=== PATIENT | female | born 1940 | race Caucasian/White ===

== ENCOUNTER 2016-09-03 08:02 | Outpatient (CLI) | payer MEDICARE, OTHER ==
[2016-09-03 08:42] LABS: HEMOGLOBIN A1C 0.47 g/dL
== END 2016-09-03 08:03 | disposition home or self-care (01) ==
LOC: LAB 08:02
PROVIDERS: ATTEND Internal Medicine Endocrinology, Diabetes & Metabolism
DX: R73.03 Prediabetes (principal); E03.8 Other specified hypothyroidism; M85.80 Other specified disorders of bone density and structure, unspecified site
CPT/HCPCS: 36415; 82306; 82310; 83036; 84443

== ENCOUNTER 2017-07-22 09:52 | Outpatient (CLI) | payer MEDICARE, OTHER ==
--- NOTE | 2017-07-22 12:46 | XRAY Report ---
THREE VIEW RIGHT FOOT: 07/22/2017 CLINICAL INDICATION: Pain. FINDINGS: AP, lateral, oblique views of the right foot demonstrate degenerative changes. There is no evidence of acute fracture or dislocation. No radiopaque foreign body is seen in the soft tissues. IMPRESSION: DEGENERATIVE CHANGES. TD: 07/22/2017 12:32
== END 2017-07-22 09:53 | disposition home or self-care (01) ==
LOC: DI 09:52
PROVIDERS: ATTEND Podiatrist
DX: M79.671 Pain in right foot (principal); R60.0 Localized edema

== ENCOUNTER 2017-11-27 15:27 | Outpatient (CLI) | payer MEDICARE, OTHER ==
--- NOTE | 2017-11-30 09:28 | Mammography Report ---
Reason: SCREENING MAMMO Procedure Date: 11/27/2017 Accession Number: [id number] / [id number] Procedure: SHANKAR - Screening Mammo Dig Bilat CPT Code: FULL RESULT: EXAM: Screening Mammo Dig Bilat DATE: 11/27/2017 3:54 PM CLINICAL HISTORY: 77-year-old female presents for screening mammogram. TECHNIQUE: Bilateral CC and MLO views were obtained. COMPARISON: 12/16/2012, 08/21/2010, 08/14/2009. FINDINGS: The breasts demonstrate scattered fibroglandular densities bilaterally. Typically benign coarse calcifications are seen in the right breast. Coarse calcifications in the left breast are stable dating back to 2012, likely more conspicuous breast density loss. No suspicious masses, clustered microcalcifications, or regions of architectural distortion are identified. IMPRESSION: Benign findings RECOMMENDATION: Routine annual screening unless otherwise clinically indicated. BIRADS CATEGORY 2: Benign findings STANDARD QUALIFYING STATEMENTS: 1. This examination was not reviewed with the aid of Computer-Aided Detection (CAD). 2. A negative or benign imaging report should not delay biopsy if clinically suspicious findings are present. Consider surgical consultation if warrented. More than 5% of cancers are not identified by imaging. 3. Dense breasts may obscure an underlying neoplasm. 4. This examination was reviewed without the aid of 3D breast imaging (tomosynthesis).
== END 2017-11-27 15:28 | disposition home or self-care (01) ==
LOC: DI 15:27
PROVIDERS: ATTEND Family Medicine
DX: Z12.31 Encounter for screening mammogram for malignant neoplasm of breast (principal)
CPT/HCPCS: 77067

== ENCOUNTER 2018-03-12 09:19 | Outpatient (CLI) | payer MEDICARE, OTHER ==
[2018-03-12 10:10] LABS: HB2 TOTAL 13.4 g/dL; HEMOGLOBIN A1C 0.51 g/dL; HEMOGLOBIN A1C % 5.6 % (4.6-6.2)
[2018-03-12 10:41] LABS: THYROID STIMULATING HORMONE 4.03 uIU/mL (0.34-5.60)
[2018-03-12 10:43] LABS: FREE T4 (FREE THYROXINE) 1.06 ng/dL (0.58-1.64)
== END 2018-03-12 09:20 | disposition home or self-care (01) ==
LOC: LAB 09:19
PROVIDERS: ATTEND Internal Medicine Endocrinology, Diabetes & Metabolism
DX: R73.03 Prediabetes (principal); E03.9 Hypothyroidism, unspecified
CPT/HCPCS: 36415; 82310; 83036; 84439; 84443; 84481

== ENCOUNTER 2019-03-15 10:18 | Outpatient (CLI) | payer MEDICARE, OTHER ==
[2019-03-15 10:49] LABS: HB2 TOTAL 12.5 g/dL; HEMOGLOBIN A1C 0.47 g/dL; HEMOGLOBIN A1C % 5.6 % (4.6-6.2)
[2019-03-15 11:39] LABS: THYROID STIMULATING HORMONE 1.95 uIU/mL (0.34-5.60)
[2019-03-15 11:41] LABS: FREE T4 (FREE THYROXINE) 1.15 ng/dL (0.58-1.64)
== END 2019-03-15 10:19 | disposition home or self-care (01) ==
LOC: LAB 10:18
PROVIDERS: ATTEND Internal Medicine Endocrinology, Diabetes & Metabolism
DX: M85.80 Other specified disorders of bone density and structure, unspecified site (principal); R73.03 Prediabetes; E03.8 Other specified hypothyroidism
CPT/HCPCS: 36415; 82310; 83036; 84439; 84443; 84481

== ENCOUNTER 2019-05-24 08:25 | Outpatient (CLI) | payer MEDICARE, OTHER ==
--- NOTE | 2019-05-24 10:58 | MRI Report ---
Reason: LEG WEAKNESS, INCONTINENCE Procedure Date: 05/24/2019 Accession Number: [id number] / [id number] Procedure: MRI - Lumbar Spine W/O CPT Code: Final Report FULL RESULT: EXAM: MRI LUMBAR SPINE WITHOUT CONTRAST INDICATION: 79-year-old female. Right leg weakness. Incontinence. TECHNIQUE: 1. Sagittal STIR, T1 and T2. 2. Axial T1 and T2. COMPARISON: 09/22/2015. FINDINGS: To maintain continuity with the report for the previous examination of 09/22/2015, this study has also been interpreted with the transitional vertebra at the lumbosacral junction being labeled L5. The L5 vertebra is partially sacralized on the right. Again demonstrated is a mild, dextroconvex scoliosis with apex at the L1-L2 disk level and compensatory, mild levoconvex scoliosis with apex at the L3-L4 disk level. In the sagittal plane there is minor retrolisthesis of L1 on L2, stable. There has been interval development of a grade 1 anterior subluxation of L3 on L4, measuring about 4.5 mm. There is no evidence of L3 spondylolysis. The anterior subluxation appears to be secondary to degenerative facet arthrosis. The vertebral alignment is otherwise unremarkable. There is absence of normal T2 signal from the disks at all levels, confirming disk degeneration. There is moderate to severe disk space narrowing at T10-T11, most pronounced, laterally on the right. Mild disk space narrowing is again seen at L1-L2 with mild to moderate narrowing at L2-L3, mild narrowing at L3-L4 and moderate to severe narrowing at L4-L5, essentially unchanged. A large intraosseous hemangioma is again seen in the T11 vertebral body. There is a type I reactive marrow change in the vertebral endplates at T10-T11, L3-L4 and L4-L5. The marrow signal intensity is otherwise unremarkable. The conus terminates in an appropriate fashion at about the T12-L1 disk level. Axial images: T9-T10: No disk herniation. Degenerative facet arthrosis with mild bony hypertrophy. Minimal mass effect on the dural sac. No spinal stenosis. No significant-appearing foraminal narrowing. T10-T11: Tiny, shallow protrusion paracentrally to the right. Larger extrusion paracentrally to the left. Associated mass effect on the ventral aspect of the dural sac. Posterior element hypertrophy with associated mass effect on the dorsal aspect of the dural sac, most prominent on the right. No significant associated spinal stenosis. There is at least mild bony foraminal narrowing bilaterally. T11-T12: No disk herniation. Degenerative facet arthrosis with minimal bony hypertrophy. No spinal canal or foraminal stenosis. T12-L1: No disk herniation. No spinal canal or foraminal stenosis. L1-L2: Retrolisthesis with associated uncovering of the disk. No posterior protrusion or extrusion is demonstrated. There is a tiny left infra-/extraforaminal protrusion. Degenerative facet arthrosis without significant bony hypertrophy. Mild redundancy of the ligamentum flava. No spinal stenosis. Minimal foraminal narrowing. L2-L3: Small right intraforaminal protrusion. Small left intraforaminal extrusion. Degenerative facet arthrosis with minimal bony hypertrophy. Mild to moderate redundancy of the ligamenta flava. Mild mass effect on the dorsal aspect of the dural sac. No significant spinal stenosis. Mild foraminal narrowing. L3-L4: Anterolisthesis with associated uncovering of the disk. No posterior protrusion or extrusion is demonstrated. There are small intra-/extraforaminal extrusions bilaterally. Degenerative facet arthrosis with moderate bony hypertrophy. Moderate to marked redundancy of the ligamenta flava. Circumferential thecal sac compression with moderate generalized (central and subarticular zone) spinal stenosis. The degree of subarticular zone narrowing appears to have decreased since the previous study. There is mild foraminal narrowing bilaterally. L4-L5: Minor intraforaminal protrusions or extrusions bilaterally, unchanged. Degenerative facet arthrosis with mild bony hypertrophy. Mild to moderate redundancy of the ligamenta flava. No significant spinal stenosis. Minimal left and mild to moderate right foraminal stenoses. Intraforaminal disk appears to contact the undersurface of the exiting right L4 nerve root in the lateral aspect of the neural foramen, unchanged. The perineural fat is otherwise preserved. L5-S1: No disk herniation. No spinal canal or foraminal stenosis. There is a moderate degree of fatty atrophy in the posterior paraspinal musculature. Again demonstrated are 2 cortical cysts in the right kidney, the largest measuring about 13 mm diameter, increased from about 4.5 mm diameter on the previous study. There is a multilobulated, T2 hyperintense mass, posteriorly in the right lobe of the liver (see images 50 through 46 of series 601) measuring up to about 2.8 cm and a 3.4 cm maximal transverse. IMPRESSION: 1. To maintain continuity with the report for the previous study of 09/22/2015, this examination has also been interpreted with the transitional vertebra at the lumbosacral junction being labeled L5. 2. There has been interval development of mild (grade 1) degenerative anterolisthesis of L3 on L4. 3. Essentially stable pattern of multilevel degenerative disk and facet change. 4. There is moderate generalized (central and subarticular zone) spinal stenosis at L3-L4. The degree of subarticular zone narrowing actually appears reduced when compared to the study of 09/22/2015. There is no compromise of the traversing L4 nerve roots in the subarticular zones. 5 No other spinal stenosis is demonstrated. 6. Again demonstrated is multilevel foraminal narrowing. However, no high-grade foraminal stenosis is demonstrated and there is no evidence of lumbar nerve root impingement.
== END 2019-05-24 08:26 | disposition home or self-care (01) ==
LOC: DI 08:25
PROVIDERS: ATTEND Psychiatry & Neurology Neurology
DX: M51.36 Other intervertebral disc degeneration, lumbar region (principal); M48.061 Spinal stenosis, lumbar region without neurogenic claudication; M47.816 Spondylosis without myelopathy or radiculopathy, lumbar region; M47.814 Spondylosis without myelopathy or radiculopathy, thoracic region; M51.26 Other intervertebral disc displacement, lumbar region; M43.16 Spondylolisthesis, lumbar region
CPT/HCPCS: 72148

== ENCOUNTER 2020-05-31 08:33 | Outpatient (CLI) | payer MEDICARE, OTHER ==
--- NOTE | 2020-05-31 09:56 | DEXA Report ---
PROCEDURE: Dexa Spine and/or Hip INDICATIONS: POST MENOPAUSAL TECHNIQUE: Dual energy x-ray absorptiometry (DXA) was performed on a [employer] System. Regions measur ed are the AP Spine, femoral neck, and if needed forearm. COMPARISON: None. FINDINGS: Lumbar Spine L1 and L2 levels (surgical hardware is seen at L4 level): Bone Mineral Density 0.894 g/cm/cm,T score -2.3, Left Hip: Bone Mineral Density 0.753 g/cm/cm,T score -2.0, Left Femoral Neck: Bone Mineral Density 0.748 g/cm/cm, T score -2.1, (T score greater or equal to -1.0: NORMAL) (T score from -1.1 to -2.4: OSTEOPENIA) (T score less than or equal to -2.5 to: OSTEOPOROSIS) Impression: Osteopenia. Patients with diagnosis of osteoporosis or osteopenia should have regular bone mineral density assess ment. For those eligible for Medicare, routine testing is allowed once every 2 years. Testing frequ ency can be increased for patients who have rapidly progressing disease or for those who are receivin g medical therapy to restore bone mass. Reviewed by: Kb Funes MD on 05/31/2020 9:54 AM PDT Approved by: Kb Funes MD on 05/31/2020 9:54 AM PDT Station ID: [id number]
== END 2020-05-31 08:34 | disposition home or self-care (01) ==
LOC: DI 08:33
PROVIDERS: ATTEND Internal Medicine
DX: Z13.820 Encounter for screening for osteoporosis (principal); N95.8 Other specified menopausal and perimenopausal disorders; M85.89 Other specified disorders of bone density and structure, multiple sites

== ENCOUNTER 2021-02-18 14:50 | Outpatient (CLI) | payer MEDICARE, OTHER ==
[2021-02-18 16:00] LABS: FOLATE 8.02 ng/mL (5.90 - >24.8)
== END 2021-02-18 14:51 | disposition home or self-care (01) ==
LOC: LAB 14:50
PROVIDERS: ATTEND Psychiatry & Neurology Neurology
DX: G11.9 Hereditary ataxia, unspecified (principal); H53.2 Diplopia
CPT/HCPCS: 36415; 82607; 82746; 84425

== ENCOUNTER 2021-09-27 08:46 | Outpatient (CLI) | payer MEDICARE, OTHER | END 2021-09-27 08:47 | disposition home or self-care (01) | LOC: LAB 08:46 | PROVIDERS: ATTEND Orthopaedic Surgery | DX: Z01.812 Encounter for preprocedural laboratory examination (principal); Z20.822 Contact with and (suspected) exposure to COVID-19 ==

== ENCOUNTER 2021-12-20 12:51 | Emergency (ER) | payer MEDICARE, OTHER ==
--- NOTE | 2021-12-20 14:58 | CT Report ---
PROCEDURE: LUMBAR SPINE WO INDICATIONS: low back pain s/p fall, ortho req CT TECHNIQUE: Noncontrast 3 mm thick sections acquired from the T12 level to the sacrum. Sagittal and coronal refo rmats were constructed. For radiation dose reduction, the following was used: automated exposure co ntrol, adjustment of mA and/or kV according to patient size. COMPARISON: Prior lumbosacral spine MRI 05/24/2019 (preoperative).. FINDINGS: Image quality: Excellent. Bones: There is normal bony alignment. There is, however, and acute L2 vertebral body compression fr acture. No suspicious lytic or blastic bony lesions. Central spinal caliber is of mildly reduced ov erall caliber at the level of the compression fracture involving L2. No pars defects. The lumbosacral spine has been fused by transverse pedicle screws and a vertical fixation marija that wi th interbody L4-L5 cage disc prosthesis at the level of fusion. This appears free of disruption. The acute trauma involving L2 predominantly involving the upper third of the vertebral body where cir cumferential fractures and mild retropulsion of the upper posterior L2 vertebral body into the spinal canal by approximately 3-4 mm is present. Fracture planes extend into the posterior third of the lorene tebral body and base of the right and left pedicles as a result. Slight degenerative retrolisthesis of L2 on L3 is present. There is an estimated 25% vertebral body h eight reduction at the middle third of the vertebral body in AP orientation. Soft tissues: No retroperitoneal masses or hematomas. Visualized aorta is normal in caliber. IMPRESSION: 1. Acute L2 superior vertebral body compression fracture which extends into the posterior third of th e vertebral body and is associated with mild retropulsion of the upper posterior L2 vertebral body abiola rder into the spinal canal by approximately 3-4 mm. This is considered a potentially unstable "burst fracture". Approximately a 25% vertebral height reduction is associated with this injury when compare d to the normal height vertebral bodies above and below. 2. Previously performed L4-L5 fusion procedure shows no sign of disruption. Reviewed by: Rajesh Bañuelos MD on 12/20/2021 2:56 PM PDT Approved by: Rajesh Bañuelos MD on 12/20/2021 2:56 PM PDT Station ID: [id number]
[2021-12-20] MEDS ORDERED: KETOROLAC 30 MG/ML VIAL IM STA (16:09)
[2021-12-20] MEDS ORDERED: DEXAMETHASONE 10 MG/ML VIAL IM STA (16:09)
--- NOTE | 2021-12-20 16:54 | ED Physician Documentation ---
History of Present Illness - Stated complaint Stated Complaint: FALL - Chief complaint Chief Complaint: Back Pain - History obtained from History obtained from: Patient - Additonal information Additional information: The patient comes to the emergency department for chief complaint of right lateral sacral area pain after a fall 5 days ago. The patient states she sat down hard in her bathroom on a ceramic tile floor. She was not hurt in any other way. She was seen at [facility], where she is already established as a patient and has had both a hip replacement and a low back surgery with Dr. Funes. X-rays were done at that time and negative. The patient was placed on symptomatic treatment and sent home, with the recommendation that if she noticed worsening pain, to come to the ED for a CT scan. The patient states she really does not like to take pain medication and has been taking 1 oxycodone a day at around 10:00 in the morning. She states that as the day wears on, she notices increasing pain in her right lateral sacral area, but then takes ibuprofen and Tylenol before going to bed and sleeps very well. Patient denies any numbness or tingling in her lower extremities. No weakness. No difficulty controlling bowels or bladder. She has had no trouble ambulating other than that it hurts a bit. No back pain higher up. No other complaints at this time. Review of Systems Ten Systems: 10 systems reviewed and negative Constitutional: reports: Reviewed and negative Eyes: reports: Reviewed and negative Ears: reports: Reviewed and negative Nose: reports: Reviewed and negative Throat: reports: Reviewed and negative Cardiac: reports: Reviewed and negative Respiratory: reports: Reviewed and negative GI: reports: Reviewed and negative : reports: Reviewed and negative Skin: reports: Reviewed and negative Musculoskeletal: reports: Back pain Neurologic: reports: Reviewed and negative Psychiatric: reports: Reviewed and negative Endocrine: reports: Reviewed and negative Immunocompromised: reports: Reviewed and negative PD PAST MEDICAL HISTORY - Past Medical History Cardiovascular: Arrhythmia Endocrine/Autoimmune: HyPOthyroidism HEENT: Glaucoma - Past Surgical History HEENT: Cataracts - Present Medications Home Medications: Ambulatory Orders Medication Instructions Recorded Confirmed Ascorbic Acid/Cod Liver Oil [Cod 1 tab ORAL DAILY 05/04/14 05/04/14 Liver Oil Tab Chewable] Ca/D3/Mag Ox/Zinc/Cable Weaver/Rob/Bor 1 tab ORAL DAILY 05/04/14 05/04/14 [Calcium 600-Vit D3-Min Chew Tb] Levothyroxine [Synthroid] 1 tab ORAL DAILY 05/04/14 05/04/14 Liothyronine Sodium [Cytomel] 1 tab ORAL DAILY 05/04/14 05/04/14 Triamterene/Hydrochlorothiazid 1 tab ORAL DAILY 05/04/14 05/04/14 [Maxzide 37.5 mg-25 mg Tablet] Cholecalciferol (Vitamin D3) 4,000 unit PO 04/26/18 [Vitamin D] Ibuprofen 800 mg PO Q8HR PRN 04/26/18 04/26/18 Latanoprost/Pf [Latanoprost 0.005% 7.5 ml OP 04/26/18 Eye Drop] Metoprolol Succinate 12.5 mg PO DAILY 04/26/18 04/26/18 Timolol 0.25% Ophth Drops 1 drops OPTH BID 04/26/18 04/26/18 [Timoptic 0.25% Ophth Drops] Oxycodone HCl/Acetaminophen 1 - 2 each PO Q6H PRN #20 tablet 12/20/21 [Percocet 5-325 mg Tablet] - Allergies Allergies/Adverse Reactions: Allergies Allergy/AdvReac Type Severity Reaction Status Date / Time No Known Drug Allergies Allergy Verified 12/20/21 13:24 - Social History Does the pt smoke?: No Smoking Status: Never smoker Does the pt drink ETOH?: No Does the pt have substance abuse?: No - Immunizations Immunizations are current?: Yes PD ED PE NORMAL - Vitals Vital signs reviewed: Yes - General General: Alert and oriented X 3, No acute distress, Well developed/nourished - HEENT HEENT: Atraumatic, PERRL, EOMI, Moist mucous membranes - Neck Neck: Supple, no meningeal sign - Cardiac Cardiac: Strong equal pulses - Respiratory Respiratory: No respiratory distress - Abdomen Abdomen: Soft, Non tender, Non distended - Back Back: No spinal TTP - Derm Derm: Normal color, Warm and dry, No rash - Extremities Extremities: No deformity, Other (Tenderness palpation over right sacroiliac area. No deformity or step-off. No right hip tenderness.) - Neuro Neuro: Alert and oriented X 3 - Psych Psych: Normal mood, Normal affect Results - Vitals Vitals: Oxygen O2 Source Room air - Rads (name of study) CT lumbar spine Radiology: Final report received, See rad report (Acute L2 superior vertebral body compression fracture extending into posterior third of vertebral body associated with mild retropulsion into spinal canal by 3 to 4 mm considered potentially unstable burst fracture.) PD MEDICAL DECISION MAKING - ED course Complexity details: reviewed results, re-evaluated patient, considered differential, d/w patient, d/w family ED course: The patient was sent for CT of her spine which showed an L2 compression fracture which the radiologist noted as being a potentially unstable burst fracture. The patient did not have any neurologic symptoms and was not actually tender in that area. The area of tenderness did not show any abnormalities on CT scan. I did send images to [facility] and attempted to get a hold of the patient's spine surgeon or his partner, as it was only 1530 in the afternoon; however, his office stated they would not page him because their surgeons had already left for the day. Therefore, images were pushed to [facility], and I was able to speak with their deck specialist, Dr. Vasquez, who stated that the fracture could be managed conservatively, and he did not feel it posed a danger to the pt neurologically. Furthermore, he stated the pt could follow up with her PCP and did not need to be seen in spine clinic. I relayed this to the pt and her daughter, who were comfortable with this plan. We have discussed the usual indications for return. Departure - Departure Disposition: 01 Home, Self Care Clinical Impression: Back pain Qualifiers: Back pain location: low back pain Chronicity: acute Back pain laterality: right Sciatica presence: without sciatica Qualified Code(s): M54.50 - Low back pain, unspecified Burst fracture of lumbar vertebra Qualifiers: Encounter type: initial encounter Fracture type: closed Qualified Code(s): S32.001A - Stable burst fracture of unspecified lumbar vertebra, initial encounter for closed fracture Condition: Stable Instructions: ED Fx Comp Vertebral Prescriptions: Oxycodone HCl/Acetaminophen [Percocet 5-325 mg Tablet] 1 - 2 each PO Q6H PRN #20 tablet PRN Reason: pain Comments: You have been diagnosed with an L2 compression fracture that has been called by the radiologist as a possible unstable burst fracture. Because of this, we have been in the process of trying to get a hold of the deck specialist to view your images and make recommendations as to the most appropriate line of care. We have attempted to get a hold of your deck specialist or his partner at [facility], but unfortunately, they are unavailable to discuss the case and so instead, we have reached out to [facility]. I spoke with Dr. Vasquez, the spinal specialist at [facility] and he is reviewed your images. He does not feel that there is a high likelihood of shifting of your fracture, and has recommended that you take the pain medications as much as needed and follow-up in 10 to 14 days with your deck specialist. If you are having trouble getting into see your own specialist, then you may follow-up at the spinal clinic at [facility]. You may take more oxycodone than you are currently taking, or you may take smaller doses more frequently to help with your pain. Discharge Date/Time: 12/20/21 17:49
[2021-12-20 17:32] VITALS: BP 156/73
== END 2021-12-20 17:49 | disposition home or self-care (01) ==
LOC: ED 12:51
DX: S32.001A Stable burst fracture of unspecified lumbar vertebra, initial encounter for closed fracture (principal); M54.50 Low back pain, unspecified; W18.39XA Other fall on same level, initial encounter; Y92.002 Bathroom of unspecified non-institutional (private) residence as the place of occurrence of the external cause
CPT/HCPCS: 96372; 99284

== ENCOUNTER 2021-12-21 12:27 | Outpatient (CLI) | payer MEDICARE, OTHER | END 2021-12-21 12:28 | disposition EMS.NT | LOC: EMS 12:27 | DX: Z03.89 Encounter for observation for other suspected diseases and conditions ruled out (principal) ==

== ENCOUNTER 2022-01-01 06:00 | Outpatient (CLI) | payer MEDICARE, OTHER | END 2022-01-01 06:01 | disposition EMS.NT | LOC: EMS 06:00 | DX: R53.1 Weakness (principal) ==

== ENCOUNTER 2022-03-09 11:17 | Outpatient (CLI) | payer MEDICARE, OTHER | END 2022-03-09 11:18 | disposition critical access hospital (66) | LOC: EMS 11:17 | DX: R53.1 Weakness (principal); R11.10 Vomiting, unspecified; R68.83 Chills (without fever); R26.2 Difficulty in walking, not elsewhere classified; R53.81 Other malaise | CPT/HCPCS: A0425; A0429 ==

== ENCOUNTER 2022-03-09 11:34 | Emergency (ER) | payer MEDICARE, OTHER ==
[2022-03-09] MEDS ORDERED: ONDANSETRON 4 MG/2 ML VIAL IVP STA (11:44)
[2022-03-09] MEDS ORDERED: SODIUM CHLORIDE 0.9% 1,000 ML IV STA (11:44)
--- NOTE | 2022-03-09 11:51 | ED Physician Documentation ---
History of Present Illness - Stated complaint Stated Complaint: FLU LIKE SX - Additonal information Additional information: History is obtained in part by EMS as well as the patient. Patient is a reliable historian. Patient's daughter also provides ancillary data 82-year-old female is brought to the emergency department for evaluation of shaking, vomiting and increased weakness. Reportedly the patient was this morning in the restroom getting ready to use the toilet when she missed the grab bars and sat back forcefully. She did not lose consciousness but immediately began to shake and have some vomiting. She had no fevers or diarrhea. No urinary symptoms. She could not ambulate independently at home and EMS was summoned. Reportedly the patient moved to a jail facility last week. It is [facility]. She and her daughter as well as some grandchildren were at her house arranging further home goods. At baseline the patient is independent of ADLs and ambulation. Past medical history includes hypertension, atrial fibrillation as well as t hyroid disease. On presentation to the emergency department the patient is alert very well- appearing and nonfocal. However when she attempted to get out of the gurney to use the restroom she was very weak and needed assistance sitting up. Meds: Eliquis, hydrochlorothiazide, levothyroxine, metoprolol Review of Systems Constitutional: reports: Reviewed and negative Nose: reports: Reviewed and negative Throat: reports: Reviewed and negative Cardiac: reports: Reviewed and negative Respiratory: reports: Reviewed and negative GI: reports: Vomiting : reports: Reviewed and negative Skin: reports: Reviewed and negative Musculoskeletal: reports: Reviewed and negative Neurologic: reports: Generalized weakness. denies: Focal weakness, Difficulty speaking, Seizure, Confused, Altered mental status, Headache PD PAST MEDICAL HISTORY - Past Medical History Cardiovascular: Arrhythmia Endocrine/Autoimmune: HyPOthyroidism HEENT: Glaucoma - Past Surgical History HEENT: Cataracts - Present Medications Home Medications: Ambulatory Orders Medication Instructions Recorded Confirmed Ascorbic Acid/Cod Liver Oil [Cod 1 tab ORAL DAILY 05/04/14 05/04/14 Liver Oil Tab Chewable] Ca/D3/Mag Ox/Zinc/Collision Estimator/Rob/Bor 1 tab ORAL DAILY 05/04/14 05/04/14 [Calcium 600-Vit D3-Min Chew Tb] Levothyroxine [Synthroid] 1 tab ORAL DAILY 05/04/14 05/04/14 Liothyronine Sodium [Cytomel] 1 tab ORAL DAILY 05/04/14 05/04/14 Triamterene/Hydrochlorothiazid 1 tab ORAL DAILY 05/04/14 05/04/14 [Maxzide 37.5 mg-25 mg Tablet] Cholecalciferol (Vitamin D3) 4,000 unit PO 04/26/18 [Vitamin D] Ibuprofen 800 mg PO Q8HR PRN 04/26/18 04/26/18 Latanoprost/Pf [Latanoprost 0.005% 7.5 ml OP 04/26/18 Eye Drop] Metoprolol Succinate 12.5 mg PO DAILY 04/26/18 04/26/18 Timolol 0.25% Ophth Drops 1 drops OPTH BID 04/26/18 04/26/18 [Timoptic 0.25% Ophth Drops] Oxycodone HCl/Acetaminophen 1 - 2 each PO Q6H PRN #20 tablet 12/20/21 [Percocet 5-325 mg Tablet] - Allergies Allergies/Adverse Reactions: Allergies Allergy/AdvReac Type Severity Reaction Status Date / Time No Known Drug Allergies Allergy Verified 03/09/22 12:10 - Social History Does the pt smoke?: No Smoking Status: Never smoker Does the pt drink ETOH?: No Does the pt have substance abuse?: No - Immunizations Immunizations are current?: Yes PD ED PE EXPANDED - General General: Alert, No acute distress, Well developed/nourished - Cardiac Cardiac: Regular Rate, Radial strong equal, Pedal strong equal, Cap refill < 2 sec. No: Murmur Present - Respiratory Respiratory: Clear to ausultation susie. No: Distress, Labored - Abdomen Abdomen: Normal Bowel sounds. No: Tender to palpation - Derm Derm: Normal color, Warm and dry. No: Rash - Neuro Neuro: Alert and Oriented X 3, CNII-XII intact, Normal speech, Other (Fluid speech alert and oriented. No focal deficits. Postural weakness however is noted). No: Normal gait - GCS Eye Opening: Spontaneous Motor: Obeys Commands Verbal: Oriented Total: 15 Results - Vitals Vitals: Vital Signs - 24 hr 03/09/22 11:50 Temperature 37.7 C Heart Rate 86 Respiratory 20 Rate Blood Pressure 161/83 H O2 Saturation 95 Oxygen O2 Source Room air - EKG (time done) 1205 Rate: Rate (enter#) (86) Rhythm: NSR [place]: Other (LAFB) Intervals: Normal VT. No: Prolonged QT QRS: Normal Ischemia: Non specific changes Compare to prior EKG: Unchanged from prior EKG Computer interpretation: Agree with computer - Labs Labs: Laboratory Tests 03/09/22 03/09/22 03/09/22 11:30 12:07 12:07 WBC 15.5 H RBC 3.74 L Hgb 11.0 L Hct 32.9 L MCV 88.0 MCH 29.4 MCHC 33.4 RDW 12.8 Plt Count 431 MPV 8.4 Neut # (Auto) 14.2 H Lymph # (Auto) 0.5 L [place] # (Auto) 0.7 Eos # (Auto) 0.0 Baso # (Auto) 0.1 Absolute Nucleated RBC 0.00 Nucleated RBC % 0.0 Sodium 129 L Potassium 3.6 Chloride 94 L Carbon Dioxide 26 Anion Gap 9.0 BUN 20 Creatinine 0.8 Estimated GFR (MDRD) 68 L Glucose 122 H Calcium 9.4 Total Bilirubin 1.0 AST 20 ALT < 10 L Alkaline Phosphatase 69 Total Protein 7.1 Albumin 3.6 Globulin 3.5 Albumin/Globulin Ratio 1.0 Lipase 28 TSH Free T4 Urine Color YELLOW Urine Clarity CLEAR Urine pH 6.5 Ur Specific [place] 1.015 Urine Protein NEGATIVE Urine Glucose (UA) NEGATIVE Urine Ketones NEGATIVE Urine Occult Blood TRACE-INTA Urine Nitrite NEGATIVE Urine Bilirubin NEGATIVE Urine Urobilinogen 0.2 (NORMAL) Ur Leukocyte Esterase NEGATIVE Ur Microscopic Review NOT INDICATED Urine Culture Comments NOT INDICATED Influenza A (Rapid) Influenza B (Rapid) 03/09/22 03/09/22 12:07 12:07 WBC RBC Hgb Hct MCV MCH MCHC RDW Plt Count MPV Neut # (Auto) Lymph # (Auto) [place] # (Auto) Eos # (Auto) Baso # (Auto) Absolute Nucleated RBC Nucleated RBC % Sodium Potassium Chloride Carbon Dioxide Anion Gap BUN Creatinine Estimated GFR (MDRD) Glucose Calcium Total Bilirubin AST ALT Alkaline Phosphatase Total Protein Albumin Globulin Albumin/Globulin Ratio Lipase TSH 1.63 Free T4 1.64 Urine Color Urine Clarity Urine pH Ur Specific [place] Urine Protein Urine Glucose (UA) Urine Ketones Urine Occult Blood Urine Nitrite Urine Bilirubin Urine Urobilinogen Ur Leukocyte Esterase Ur Microscopic Review Urine Culture Comments Influenza A (Rapid) Negative Influenza B (Rapid) Negative - Rads (name of study) cxr Radiology: Prelim report reviewed (no acute cardiopulmonary process) ct head Radiology: Final report received (atrophy and chronic ischemic change without ICH or mass effect. 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 She recently transition to a jail center[facility]assisted living. She, her daughter and grandchildren were helping transition some furniture between the apartments. She is typically ambulatory occasionally uses a walker. This morning she attempted to sit back on the toilet but missed the grab bar and sat back forcefully. Shortly thereafter she began shaking and felt unwell and could not walk without assistance however she had no focal deficits. EMS was summoned and she was transported to the emergency department normotensive without tachycardia fever or hypoxia. On exam she appeared remarkably well though appeared to have some postural support difficulty. Differentials considered included acute viral illness, CVA/TIA, electrolyte imbalance, infections/fevers pneumonia and urinary tract infection. I did obtain a noncontrast CT of the head given the presence of Eliquis. There is no acute bleeding. She does have some old lacunar infarcts which were discussed with the family. However she presents with an NIHSS of 0 and is a Glascow of 15 otherwise. Clinically her history and exam are not consistent with TIA or stroke. Chest x-ray was without acute findings to suggest pneumonia pleural effusions or pneumothorax. Her urine showed no signs of infection. She does have a history of hypothyroidism and today her TSH and T4 were unremarkable. We did obtain a CBC that showed a modest leukocytosis of just over 15,000. However given lack of fevers or findings of infection in the chest or urine I suspect that this is a marginalization secondary to the stress response. She does have a mild anemia with a hemoglobin of 11. Her electrolytes indicate that she is got a sodium of 129. There is no previous for comparison. Here in the emergency department she was repleted with a liter of fluid. On reevaluation her postural support has dissipated and she is able to ambulate with minimal assistance though she prefers the use of the walker today. We did obtain influenza screening which was reassuringly negative. At this time the cause of her generalized weakness is not clear though it could certainly be another viral variant such as rhinovirus RSV etc. She is feeling markedly better and at this time she is stable for discharge home. I have advised the patient and her daughter to have her sodium levels rechecked next week to establish a baseline and ensure that there are no worrisome complications. Departure - Departure Disposition: 01 Home, Self Care Clinical Impression: Generalized weakness, Hyponatremia Condition: Stable Record reviewed to determine appropriate education?: Yes Comments: You came to the emergency department today because this morning when you are attempting to sit on the toilet you missed the grab bar, sat back forcefully and then began to have some shaking. You felt generally unwell. Here in the emergency department we did obtain a CT of your head because you are on Eliquis and anticoagulant. It does not show any bruising or bleeding within the brain though it does show findings that you have had strokes in the past which may be a cause of the falls you have had. I do recommend that you always ambulate using a walker. Influenza testing today was negative for you. Your chest x-ray is normal and does not show findings of pneumonia. Your urine also showed no signs of infection. We did obtain a CBC and you do have a mild anemia with a hemoglobin of 11. This is something to follow simply with your primary doctor. Your white count was mildly elevated but without fever or findings of infection I think that this is likely a stress response. Your electrolytes were also essentially normal with the exception of a mildly low sodium of 129. You were given some extra IV fluid here in the emergency department which I suspect will make this better over the next few days. I would like you to discuss this with your primary doctor to have your sodium levels rechecked next week. Today your thyroid and T4 levels were normal. I would like you to stay well-hydrated and get plenty of rest over the next few days. If at any point you find that you are having worsening symptoms, severe chest pain, shortness of air or focal weakness in your face arms or legs you should return immediately to the ER.
[2022-03-09 12:15] LABS: BASOPHILS # (AUTO) 0.1 10^3/uL (0.0-0.1); BASOPHILS % (AUTO) 0.3 %; EOSINOPHILS % (AUTO) 0.2 %; HCT - HEMATOCRIT 32.9 % (37.0-47.0); LYMPHOCYTES # (AUTO) 0.5 10^3/uL (1.5-3.5); LYMPHOCYTES % (AUTO) 2.9 %; MEAN CORPUSCULAR HEMOGLOBIN 29.4 pg (27.0-31.0); MEAN CORPUSCULAR HGB CONC 33.4 g/dL (32.0-36.0); MEAN PLATELET VOLUME 8.4 fL (7.9-10.8); MONOCYTES # (AUTO) 0.7 10^3/uL (0.0-1.0); MONOCYTES % (AUTO) 4.6 %; NEUTROPHILS # (AUTO) 14.2 10^3/uL (1.5-6.6); NEUTROPHILS % (AUTO) 91.5 %; PLT - PLATELET COUNT 431 10^3/uL (130-450); RED BLOOD COUNT 3.74 10^6/uL (4.20-5.40); RED CELL DISTRIBUTION WIDTH 12.8 % (12.0-15.0); WHITE BLOOD COUNT 15.5 x10^3/uL (4.8-10.8)
--- OUTSIDE RECORDS SUMMARY | 2022-03-09 12:21 | EXTERNAL MEDICAL SUMMARY RPT | Continuity of Care Document ---
:1940 Author Organization [facility] Address [address] [place] [address] Phone Allergies No information. Encounters No information. Functional Status No information. Immunizations No information. Medications No information. Problems date description facility 2022-02-10 09:04 Essential (primary) hypertension [facility] 2022-02-10 09:04 [facility] 09:04 Nonrheumatic tricuspid (valve) [facility] 2022-02-10 09:04 Unspecified atrial fibrillation [facility] 2022-02-10 09:04 Dyspnea, [facility] 2022-02-10 09:06 Essential (primary) hypertension [facility] 2022-02-10 09:06 Nonrheumatic mitral (valve) [facility] 2022-02-10 09:06 Nonrheumatic tricuspid (valve) [facility] 2022-02-10 09:06 Unspecified atrial fibrillation [facility] 2022-02-10 09:06 Dyspnea, [facility] Procedures No information. Results/Labs test date author facility value unit interpret ation Result panel 1 (unknown) (no (unknown) (unknown) (no value) (units (unk nown) date) unknown) (unknown) (no (unknown) (unknown) [id number] (units (unkno wn) date) unknown) (unknown) (no (unknown) (unknown) 02/10/22 (units (unkno wn) date) unknown) (unknown) (no (unknown) (unknown) [address] [place] [address] (units (unknown) date) unknown) (unknown) (no (unknown) (unknown) sev ratio: 0.95 (units (unknown) date) unknown) (unknown) (no (unknown) (unknown) FRANKLIN indexed to BSA (units (unknown) date) (cm2/m2): 2.0 unknown) (unknown) (no (unknown) (unknown) FRANKLIN(VTI)/BSA_phl: 2.0 (un its (unknown) date) unknown) (unknown) (no (unknown) (unknown) Accession Number: (units (unknown) date) [id number] unknown) (unknown) (no (unknown) (unknown) Accession Number: (units (unknown) date) [id number] unknown) (unknown) (no (unknown) (unknown) Age/Sex: 82 / F Date (uni ts (unknown) date) of Service: unknown) (unknown) (no (unknown) (unknown) [place] [address] (unit s (unknown) date) unknown) (unknown) (no (unknown) (unknown) Ao V2 VTI: 22.9 cm (units (unknown) date) FRANKLIN(V,D): 2.7 cm2 unknown) (unknown) (no (unknown) (unknown) Ao V2 max: 103.0 (units (unknown) date) cm/sec LVOT Max Mohinder: unknown) 80.3 cm/sec (unknown) (no (unknown) (unknown) Ao V2 mean: 73.5 (units (unknown) date) cm/sec LV V1 max PG: unknown) 2.6 mmHg (unknown) (no (unknown) (unknown) Ao max P.0 mmHg (unit s (unknown) date) LV V1 VTI: 21.7 cm unknown) (unknown) (no (unknown) (unknown) Ao mean P.0 mmHg (uni ts (unknown) date) FRANKLIN(I,D): 3.3 cm2 unknown) (unknown) (no (unknown) (unknown) Aortic Valve: There (unit s (unknown) date) is mild aortic valve unknown) sclerosis. The aortic valve is (unknown) (no (unknown) (unknown) Atria: Both atria are (un its (unknown) date) normal in size. The unknown) interatrial septum grossly appears (unknown) (no (unknown) (unknown) CARDIAC STRESS: The (unit s (unknown) date) patient underwent IV unknown) Lexiscan perfusion study under the (unknown) (no (unknown) (unknown) CONCLUSION: I will (units (unknown) date) call this study a unknown) normal myocardial perfusion study. (unknown) (no (unknown) (unknown) COPIES MNE: PALV; (units (unknown) date) unknown) (unknown) (no (unknown) (unknown) DATE OF SERVICE: (units (unknown) date) 02/10/2022 unknown) (unknown) (no (unknown) (unknown) DICTATING MD/COPIES (unit s (unknown) date) TO: Jan Amor MD unknown) (unknown) (no (unknown) (unknown) : 1940 (units (unknown) date) Acct:[id number] unknown) (unknown) (no (unknown) (unknown) Doppler Measurements (uni ts (unknown) date) + Calculations unknown) (unknown) (no (unknown) (unknown) E/E' lat: 6.9 (units ( unknown) date) unknown) (unknown) (no (unknown) (unknown) E/E' med: 9.1 (units ( unknown) date) unknown) (unknown) (no (unknown) (unknown) E/e' average: 8.0 (units (unknown) date) unknown) (unknown) (no (unknown) (unknown) EKG changes seen. No (uni ts (unknown) date) obvious atrial unknown) fibrillation or sustained ventricular (unknown) (no (unknown) (unknown) Echocardiography (units (unknown) date) Report unknown) (unknown) (no (unknown) (unknown) (unknown) (no (unknown) (unknown) FS: 34.1 % asc Aorta (uni ts (unknown) date) Diam: 3.3 cm unknown) (unknown) (no (unknown) (unknown) GATED STUDY: Stress (unit s (unknown) date) LV ejection fraction unknown) 89 percent and resting LV ejection (unknown) (no (unknown) (unknown) Great Vessels: The (units (unknown) date) aortic root is normal unknown) size. The dimensions of the (unknown) (no (unknown) (unknown) INDICATION: Atrial (units (unknown) date) fibrillation. unknown) (unknown) (no (unknown) (unknown) IVSd: 1.1 cm (units (u nknown) date) unknown) (unknown) (no (unknown) (unknown) Interpretation (units (unknown) date) Summary unknown) (unknown) (no (unknown) (unknown) [facility] (units (unknown) date) unknown) (unknown) (no (unknown) (unknown) Reinaldo Avery - MRN: (un its (unknown) date) [id number] unknown) (unknown) (no (unknown) (unknown) LA A2 area: 16.1 cm2 (uni ts (unknown) date) unknown) (unknown) (no (unknown) (unknown) LA A4 area: 12.6 cm2 (uni ts (unknown) date) unknown) (unknown) (no (unknown) (unknown) LA dimension: 2.3 cm (uni ts (unknown) date) RA long axis: 4.0 cm unknown) (unknown) (no (unknown) (unknown) LA length (vol): 5.1 (uni ts (unknown) date) cm unknown) (unknown) (no (unknown) (unknown) LA vol index: 20.4 (units (unknown) date) ml/m2 unknown) (unknown) (no (unknown) (unknown) LA vol: 34.0 ml (units (unknown) date) unknown) (unknown) (no (unknown) (unknown) LV carrera. diameter/BSA (un its (unknown) date) (cm/m2): 2.5 unknown) (unknown) (no (unknown) (unknown) LV sys. diameter/BSA (uni ts (unknown) date) (cm/m2): 1.6 unknown) (unknown) (no (unknown) (unknown) LVIDd: 4.1 cm LVOT (units (unknown) date) diam: 2.1 cm unknown) (unknown) (no (unknown) (unknown) LVIDs: 2.7 cm Ao root (un its (unknown) date) diam: 3.6 cm unknown) (unknown) (no (unknown) (unknown) LVPWd: 0.90 cm (units (unknown) date) unknown) (unknown) (no (unknown) (unknown) Lat Peak E' Mohinder: 9.2 (uni ts (unknown) date) cm/sec unknown) (unknown) (no (unknown) (unknown) Left Ventricle: The (unit s (unknown) date) left ventricle is unknown) normal in size. Proximal septal (unknown) (no (unknown) (unknown) Loc: [facility] (units (unkn own) date) unknown) (unknown) (no (unknown) (unknown) Lung/heart ratio (units (unknown) date) 0.21, which is within unknown) normal limits. (unknown) (no (unknown) (unknown) MMode/2D Measurements (un its (unknown) date) + Calculations unknown) (unknown) (no (unknown) (unknown) MV A max mohinder: 96.0 (units (unknown) date) cm/sec TR max P.5 unknown ) mmHg (unknown) (no (unknown) (unknown) MV E max mohinder: 63.4 (units (unknown) date) cm/sec TR max mohinder: unknown) 276.0 cm/sec (unknown) (no (unknown) (unknown) MV E/A: 0.66 (units (u nknown) date) unknown) (unknown) (no (unknown) (unknown) MV P1/2t-pr_phl: 86.0 (un its (unknown) date) msec unknown) (unknown) (no (unknown) (unknown) MV dec time: 0.29 sec (un its (unknown) date) unknown) (unknown) (no (unknown) (unknown) MYOCARDIAL PERFUSION (uni ts (unknown) date) SCAN: Stress supine unknown) and resting supine images were (unknown) (no (unknown) (unknown) Med Peak E' Mohinder: 7.0 (uni ts (unknown) date) cm/sec unknown) (unknown) (no (unknown) (unknown) Mild atherosclerotic (uni ts (unknown) date) plaque(s) in the unknown) aortic arch. (unknown) (no (unknown) (unknown) Mitral Valve: There (unit s (unknown) date) is mild mitral annular unknown ) calcification. The mitral valve (unknown) (no (unknown) (unknown) Nuclear Medicine (units (unknown) date) Report unknown) (unknown) (no (unknown) (unknown) Ordering Provider: (units (unknown) date) Jan Amor MD unknown) (unknown) (no (unknown) (unknown) PROCEDURE: (units (unk nown) date) Pharmacological unknown) perfusion study. (unknown) (no (unknown) (unknown) Patient: (units (unkno wn) date) Reinaldo Avery MR#: unknown) M0 (unknown) (no (unknown) (unknown) Pericardium/ Pleura (unit s (unknown) date) There is no unknown) pericardial effusion. There is an anterior (unknown) (no (unknown) (unknown) Procedure: A (units (u nknown) date) two-dimensional unknown) transthoracic echocardiogram with color flow (unknown) (no (unknown) (unknown) Procedure: EC echo (units (unknown) date) doppler complete unknown) (unknown) (no (unknown) (unknown) Procedure: NM gurjit (units (unknown) date) perf SPECT R+S pharm unknown) (unknown) (no (unknown) (unknown) Pulmonic Valve: The (unit s (unknown) date) pulmonic valve is unknown) normal in structure and function. (unknown) (no (unknown) (unknown) RADIOPHARMACEUTICAL: (uni ts (unknown) date) 25.0 millicurie unknown) technetium-99m Myoview IV was injected at (unknown) (no (unknown) (unknown) RAW DATA: Breast (units (unknown) date) shadow was seen. There unknown ) is increased subdiaphragmatic (unknown) (no (unknown) (unknown) Reading (units (unkno wn) date) Physician:04:00 PM unknown) (unknown) (no (unknown) (unknown) Right Ventricle: The (uni ts (unknown) date) right ventricle is unknown) normal in size and function. (unknown) (no (unknown) (unknown) SV(LVOT): 75.2 ml AV (uni ts (unknown) date) VR_phl: 0.78 unknown) (unknown) (no (unknown) (unknown) Signed (units (unkno wn) date) unknown) (unknown) (no (unknown) (unknown) Summed (units (unkno wn) date) unknown) (unknown) (no (unknown) (unknown) TAPSE_phl: 1.9 cm (units (unknown) date) unknown) (unknown) (no (unknown) (unknown) The IVC is of normal (uni ts (unknown) date) diameter and collapses unknown ) greater than 50% with a sniff. (unknown) (no (unknown) (unknown) The ejection fraction (un its (unknown) date) is estimated to be unknown) 60-65%. (unknown) (no (unknown) (unknown) The left ventricle is (un its (unknown) date) normal in size. unknown) (unknown) (no (unknown) (unknown) The right ventricle (unit s (unknown) date) is normal in size and unknown) function. (unknown) (no (unknown) (unknown) The right ventricular (un its (unknown) date) systolic pressure is unknown) estimated to be at least 34 mmHg (unknown) (no (unknown) (unknown) There are no focal (units (unknown) date) wall motion unknown) abnormalities. Diastolic parameters suggest a (unknown) (no (unknown) (unknown) There is mild aortic (uni ts (unknown) date) regurgitation. unknown) (unknown) (no (unknown) (unknown) There is mild to (units (unknown) date) moderate mitral unknown) regurgitation. (unknown) (no (unknown) (unknown) There is moderate (units (unknown) date) tricuspid unknown) regurgitation. (unknown) (no (unknown) (unknown) There is trace (units (unknown) date) pulmonic unknown) regurgitation. (unknown) (no (unknown) (unknown) This suggests a low (unit s (unknown) date) right atrial pressure unknown) of 3 mm Hg. (unknown) (no (unknown) (unknown) Tricuspid Valve: (units (unknown) date) Tricuspid leaflets are unknown ) thickened. There is moderate (unknown) (no (unknown) (unknown) [employer]/fn/lc (units (unkno wn) date) unknown) (unknown) (no (unknown) (unknown) (un its (unknown) date) unknown ) (unknown) (no (unknown) (unknown) activity, as well. (units (unknown) date) unknown) (unknown) (no (unknown) (unknown) and Doppler was (units (unknown) date) performed. The study unknown) quality was technically adequate. There (unknown) (no (unknown) (unknown) ascending aorta are (unit s (unknown) date) normal. Mild unknown) atherosclerotic plaque(s) in the aortic arch. (unknown) (no (unknown) (unknown) based on an estimated (un its (unknown) date) right atrial pressure unknown) of 3 mm Hg. (unknown) (no (unknown) (unknown) compared to each (units (unknown) date) other. There are no unknown) prone images. Overall, normal myocardial (unknown) (no (unknown) (unknown) dd: 02/10/2022 (units (unknown) date) 16:45:00 dt: unknown) 02/10/2022 22:03:00 (unknown) (no (unknown) (unknown) doc#: [id number]/job#: (uni ts (unknown) date) [id number] unknown) (unknown) (no (unknown) (unknown) echo-free space (units (unknown) date) consistent with a fat unknown) pad. There is no pleural effusion. (unknown) (no (unknown) (unknown) electrocardiographic (uni ts (unknown) date) changes. Preserved unknown) left ventricular function. Overall, (unknown) (no (unknown) (unknown) filling pressures. (units (unknown) date) unknown) (unknown) (no (unknown) (unknown) fraction 76 percent. (uni ts (unknown) date) Resting end-diastolic unknown) volume 79 mL. No obvious wall (unknown) (no (unknown) (unknown) intact with no (units (unknown) date) obvious evidence for unknown) an atrial septal defect. (unknown) (no (unknown) (unknown) is no prior (units (un known) date) echocardiogram noted unknown) for this patient. The patient was in normal (unknown) (no (unknown) (unknown) ischemia or (units (un known) date) infarction pattern. unknown) (unknown) (no (unknown) (unknown) leaflets appear (units (unknown) date) mildly thickened, but unknown) open well. There is mild to moderate (unknown) (no (unknown) (unknown) low-risk myocardial (unit s (unknown) date) perfusion scan. unknown) (unknown) (no (unknown) (unknown) mitral regurgitation. (un its (unknown) date) unknown) (unknown) (no (unknown) (unknown) motion abnormalities. (un its (unknown) date) TID ratio 0.95, which unknown) is within normal limits. (unknown) (no (unknown) (unknown) perfusion. Summed (units (unknown) date) stress score is 0 and unknown) summed rest score is 1. No convincing (unknown) (no (unknown) (unknown) relaxation (units (unk nown) date) abnormality of the unknown) left ventricle, consistent with probable normal (unknown) (no (unknown) (unknown) remained (units (unkno wn) date) hemodynamically unknown) stable. Baseline blood pressure 124/64. Baseline (unknown) (no (unknown) (unknown) rhythm was sinus with (un its (unknown) date) intermittent PACs. unknown) During stress, no convincing ischemic (unknown) (no (unknown) (unknown) sinus rhythm during (unit s (unknown) date) the exam. unknown) (unknown) (no (unknown) (unknown) stress and 12.1 (units (unknown) date) millicurie unknown) technetium-99m Myoview IV was injected at rest. (unknown) (no (unknown) (unknown) stress score is 0. (units (unknown) date) Baseline rhythm sinus. unknown ) No obvious ischemic (unknown) (no (unknown) (unknown) supervision of an (units (unknown) date) attending staff, as unknown) per standard protocol. The patient (unknown) (no (unknown) (unknown) systolic function is (uni ts (unknown) date) normal. The ejection unknown) fraction is estimated to be 60-65%. (unknown) (no (unknown) (unknown) tachycardia seen. Had (un its (unknown) date) minimal dyspnea. No unknown) chest discomfort. (unknown) (no (unknown) (unknown) thickening is noted. (uni ts (unknown) date) There is no echo unknown) evidence for significant left (unknown) (no (unknown) (unknown) to be at least 34 (units (unknown) date) mmHg based on an unknown) estimated right atrial pressure of 3 mm Hg. (unknown) (no (unknown) (unknown) tricuspid (units (unkn own) date) regurgitation. The unknown) right ventricular systolic pressure is estimated (unknown) (no (unknown) (unknown) trileaflet. The (units (unknown) date) aortic valve opens unknown) well. There is no aortic valve stenosis. (unknown) (no (unknown) (unknown) ventricular outflow (unit s (unknown) date) tract obstruction. unknown) There is no thrombus. Left ventricular Result panel 2 (unknown) (no date) (unknown) (unknown) Negative (units (unkn own) unknown) (unknown) (no date) (unknown) (unknown) Negative (units (unkn own) unknown) Result panel 3 (unknown) (no (unknown) (unknown) (no value) (units (unk nown) date) unknown) (unknown) (no (unknown) (unknown) [id number] (units (unkno wn) date) unknown) (unknown) (no (unknown) (unknown) [address] [place] [address] (units (unknown) date) unknown) (unknown) (no (unknown) (unknown) Accession Number: (units (unknown) date) unknown) (unknown) (no (unknown) (unknown) Age/Sex: 82 / F Date (uni ts (unknown) date) of Service: unknown) (unknown) (no (unknown) (unknown) [place] [address] (unit s (unknown) date) unknown) (unknown) (no (unknown) (unknown) CARDIAC STRESS: The (unit s (unknown) date) patient underwent IV unknown) Lexiscan perfusion study under the (unknown) (no (unknown) (unknown) CONCLUSION: I will (units (unknown) date) call this study a unknown) normal myocardial perfusion study. (unknown) (no (unknown) (unknown) COPIES MNE: PALV; (units (unknown) date) unknown) (unknown) (no (unknown) (unknown) DATE OF SERVICE: (units (unknown) date) 02/10/2022 unknown) (unknown) (no (unknown) (unknown) DICTATING MD/COPIES (unit s (unknown) date) TO: Jan Amor MD unknown) (unknown) (no (unknown) (unknown) : 1940 (units (unknown) date) Acct:[id number] unknown) (unknown) (no (unknown) (unknown) Draft (units (unkno wn) date) unknown) (unknown) (no (unknown) (unknown) EKG changes seen. No (uni ts (unknown) date) obvious atrial unknown) fibrillation or sustained ventricular (unknown) (no (unknown) (unknown) GATED STUDY: Stress (unit s (unknown) date) LV ejection fraction unknown) 89 percent and resting LV ejection (unknown) (no (unknown) (unknown) INDICATION: Atrial (units (unknown) date) fibrillation. unknown) (unknown) (no (unknown) (unknown) [facility] (units (unknown) date) unknown) (unknown) (no (unknown) (unknown) Reinaldo Avery - MRN: (un its (unknown) date) [id number] unknown) (unknown) (no (unknown) (unknown) Loc: [facility] (units (unkn own) date) unknown) (unknown) (no (unknown) (unknown) Lung/heart ratio (units (unknown) date) 0.21, which is within unknown) normal limits. (unknown) (no (unknown) (unknown) MYOCARDIAL PERFUSION (uni ts (unknown) date) SCAN: Stress supine unknown) and resting supine images were (unknown) (no (unknown) (unknown) Nuclear Medicine (units (unknown) date) Report unknown) (unknown) (no (unknown) (unknown) Ordering Provider: (units (unknown) date) unknown) (unknown) (no (unknown) (unknown) PROCEDURE: (units (unk nown) date) Pharmacological unknown) perfusion study. (unknown) (no (unknown) (unknown) Patient: (units (o wn) date) Reinaldo Avery S MR#: unknown) M0 (unknown) (no (unknown) (unknown) Procedure: (units (unk nown) date) unknown) (unknown) (no (unknown) (unknown) RADIOPHARMACEUTICAL: (uni ts (unknown) date) 25.0 millicurie unknown) technetium-99m Myoview IV was injected at (unknown) (no (unknown) (unknown) RAW DATA: Breast (units (unknown) date) shadow was seen. There unknown ) is increased subdiaphragmatic (unknown) (no (unknown) (unknown) Summed (units (unkno wn) date) unknown) (unknown) (no (unknown) (unknown) [employer]/fn/lc (units (unkno wn) date) unknown) (unknown) (no (unknown) (unknown) activity, as well. (units (unknown) date) unknown) (unknown) (no (unknown) (unknown) compared to each (units (unknown) date) other. There are no unknown) prone images. Overall, normal myocardial (unknown) (no (unknown) (unknown) dd: 02/10/2022 (units (unknown) date) 16:45:00 dt: unknown) 02/10/2022 22:03:00 (unknown) (no (unknown) (unknown) doc#: [id number]/job#: (uni ts (unknown) date) [id number] unknown) (unknown) (no (unknown) (unknown) electrocardiographic (uni ts (unknown) date) changes. Preserved unknown) left ventricular function. Overall, (unknown) (no (unknown) (unknown) fraction 76 percent. (uni ts (unknown) date) Resting end-diastolic unknown) volume 79 mL. No obvious wall (unknown) (no (unknown) (unknown) ischemia or (units (un known) date) infarction pattern. unknown) (unknown) (no (unknown) (unknown) low-risk myocardial (unit s (unknown) date) perfusion scan. unknown) (unknown) (no (unknown) (unknown) motion abnormalities. (un its (unknown) date) TID ratio 0.95, which unknown) is within normal limits. (unknown) (no (unknown) (unknown) perfusion. Summed (units (unknown) date) stress score is 0 and unknown) summed rest score is 1. No convincing (unknown) (no (unknown) (unknown) remained (units (unkno wn) date) hemodynamically unknown) stable. Baseline blood pressure 124/64. Baseline (unknown) (no (unknown) (unknown) rhythm was sinus with (un its (unknown) date) intermittent PACs. unknown) During stress, no convincing ischemic (unknown) (no (unknown) (unknown) stress and 12.1 (units (unknown) date) millicurie unknown) technetium-99m Myoview IV was injected at rest. (unknown) (no (unknown) (unknown) stress score is 0. (units (unknown) date) Baseline rhythm sinus. unknown ) No obvious ischemic (unknown) (no (unknown) (unknown) supervision of an (units (unknown) date) attending staff, as unknown) per standard protocol. The patient (unknown) (no (unknown) (unknown) tachycardia seen. Had (un its (unknown) date) minimal dyspnea. No unknown) chest discomfort. Result panel 4 (unknown) (no (unknown) (unknown) (no value) (units (unk nown) date) unknown) (unknown) (no (unknown) (unknown) [id number] (units (unkno wn) date) unknown) (unknown) (no (unknown) (unknown) [address] [place] [address] (units (unknown) date) unknown) (unknown) (no (unknown) (unknown) Accession Number: (units (unknown) date) unknown) (unknown) (no (unknown) (unknown) Age/Sex: 82 / F Date (uni ts (unknown) date) of Service: unknown) (unknown) (no (unknown) (unknown) [place] [address] (unit s (unknown) date) unknown) (unknown) (no (unknown) (unknown) CARDIAC STRESS: The (unit s (unknown) date) patient underwent IV unknown) Lexiscan perfusion study under the (unknown) (no (unknown) (unknown) CONCLUSION: I will (units (unknown) date) call this study a unknown) normal myocardial perfusion study. (unknown) (no (unknown) (unknown) COPIES MNE: PALV; (units (unknown) date) unknown) (unknown) (no (unknown) (unknown) DATE OF SERVICE: (units (unknown) date) 02/10/2022 unknown) (unknown) (no (unknown) (unknown) DICTATING MD/COPIES (unit s (unknown) date) TO: Jan Amor MD unknown) (unknown) (no (unknown) (unknown) : 1940 (units (unknown) date) Acct:[id number] unknown) (unknown) (no (unknown) (unknown) EKG changes seen. No (uni ts (unknown) date) obvious atrial unknown) fibrillation or sustained ventricular (unknown) (no (unknown) (unknown) GATED STUDY: Stress (unit s (unknown) date) LV ejection fraction unknown) 89 percent and resting LV ejection (unknown) (no (unknown) (unknown) INDICATION: Atrial (units (unknown) date) fibrillation. unknown) (unknown) (no (unknown) (unknown) [facility] (units (unknown) date) unknown) (unknown) (no (unknown) (unknown) Reinaldo Avery - MRN: (un its (unknown) date) [id number] unknown) (unknown) (no (unknown) (unknown) Loc: [facility] (units (unkn own) date) unknown) (unknown) (no (unknown) (unknown) Lung/heart ratio (units (unknown) date) 0.21, which is within unknown) normal limits. (unknown) (no (unknown) (unknown) MYOCARDIAL PERFUSION (uni ts (unknown) date) SCAN: Stress supine unknown) and resting supine images were (unknown) (no (unknown) (unknown) Nuclear Medicine (units (unknown) date) Report unknown) (unknown) (no (unknown) (unknown) Ordering Provider: (units (unknown) date) unknown) (unknown) (no (unknown) (unknown) PROCEDURE: (units () ) Pharmacological unknown) perfusion study. (unknown) (no (unknown) (unknown) Patient: (units ( wn) date) Reinaldo Avery MR#: unknown) M0 (unknown) (no (unknown) (unknown) Procedure: (units () ) unknown) (unknown) (no (unknown) (unknown) RADIOPHARMACEUTICAL: (uni ts (unknown) date) 25.0 millicurie unknown) technetium-99m Myoview IV was injected at (unknown) (no (unknown) (unknown) RAW DATA: Breast (units (unknown) date) shadow was seen. There unknown ) is increased subdiaphragmatic (unknown) (no (unknown) (unknown) Signed (units ( wn) date) unknown) (unknown) (no (unknown) (unknown) Summed (units ( wn) date) unknown) (unknown) (no (unknown) (unknown) [employer]/fn/lc (units ( wn) date) unknown) (unknown) (no (unknown) (unknown) activity, as well. (units (unknown) date) unknown) (unknown) (no (unknown) (unknown) compared to each (units (unknown) date) other. There are no unknown) prone images. Overall, normal myocardial (unknown) (no (unknown) (unknown) dd: 02/10/2022 (units (unknown) date) 16:45:00 dt: unknown) 02/10/2022 22:03:00 (unknown) (no (unknown) (unknown) doc#: [id number]/job#: (uni ts (unknown) date) [id number] unknown) (unknown) (no (unknown) (unknown) electrocardiographic (uni ts (unknown) date) changes. Preserved unknown) left ventricular function. Overall, (unknown) (no (unknown) (unknown) fraction 76 percent. (uni ts (unknown) date) Resting end-diastolic unknown) volume 79 mL. No obvious wall (unknown) (no (unknown) (unknown) ischemia or (units (un known) date) infarction pattern. unknown) (unknown) (no (unknown) (unknown) low-risk myocardial (unit s (unknown) date) perfusion scan. unknown) (unknown) (no (unknown) (unknown) motion abnormalities. (un its (unknown) date) TID ratio 0.95, which unknown) is within normal limits. (unknown) (no (unknown) (unknown) perfusion. Summed (units (unknown) date) stress score is 0 and unknown) summed rest score is 1. No convincing (unknown) (no (unknown) (unknown) remained (units (unkno wn) date) hemodynamically unknown) stable. Baseline blood pressure 124/64. Baseline (unknown) (no (unknown) (unknown) rhythm was sinus with (un its (unknown) date) intermittent PACs. unknown) During stress, no convincing ischemic (unknown) (no (unknown) (unknown) stress and 12.1 (units (unknown) date) millicurie unknown) technetium-99m Myoview IV was injected at rest. (unknown) (no (unknown) (unknown) stress score is 0. (units (unknown) date) Baseline rhythm sinus. unknown ) No obvious ischemic (unknown) (no (unknown) (unknown) supervision of an (units (unknown) date) attending staff, as unknown) per standard protocol. The patient (unknown) (no (unknown) (unknown) tachycardia seen. Had (un its (unknown) date) minimal dyspnea. No unknown) chest discomfort. Social History No information. Vital Signs No information.
[2022-03-09 12:28] LABS: BILIRUBIN,URINE NEGATIVE (NEGATIVE); GLUCOSE, URINE (UA) NEGATIVE (NEGATIVE); KETONES,URINE (UA) NEGATIVE (NEGATIVE); LEUKOCYTE ESTERASE, URINE NEGATIVE (NEGATIVE); NITRITE,URINE NEGATIVE (NEGATIVE); OCCULT BLOOD,URINE TRACE-INTA (NEGATIVE); PH,URINE 6.5 PH (5.0-7.5); PROTEIN,URINE NEGATIVE (NEGATIVE); UROBILINOGEN,URINE 0.2 (NORMAL) E.U./dL (NORMAL)
[2022-03-09 12:29] LABS: CLARITY,URINE CLEAR (CLEAR)
--- NOTE | 2022-03-09 12:40 | CT Report ---
PROCEDURE: CT brain without contrast INDICATIONS: weakness TECHNIQUE: Noncontrast 4.5 mm thick angled axial sections acquired from the foramen magnum to the vertex. For r adiation dose reduction, the following was used: automated exposure control, adjustment of mA and/or kV according to patient size. COMPARISON: None. FINDINGS: Image quality: Excellent. CSF spaces: Basal cisterns are patent. No extra-axial fluid collections. Ventricles are normal in size and shape. Brain: No midline shift. No intracranial masses or hemorrhage. Old lacunar infarct noted in the rig ht lentiform nucleus. Moderate atrophy and multifocal white matter chronic ischemic change noted. Ath erosclerotic vascular calcification noted in the cavernous segments of both internal carotid arteries as well as the intradural vertebral arteries. Skull and face: Calvarium and visualized facial bones are intact, without suspicious lesions. Sinuses: Visualized sinuses and mastoids are clear. IMPRESSION: Atrophy and chronic ischemic change without intracranial hemorrhage or mass effect. Old right basal ganglia lacunar infarct Reviewed by: Dominic Thornton MD on 03/09/2022 11:39 AM [facility] Approved by: Dominic Thornton MD on 03/09/2022 11:39 AM [facility] Station ID: [id number]
[2022-03-09 12:51] LABS: ALBUMIN 3.6 g/dL (3.2-5.5); ALKALINE PHOSPHATASE 69 IU/L (42-121); ALT ALANINE AMINOTRANSFERASE < 10 IU/L (10-60); AST ASPARTATE AMINOTRANSFERASE 20 IU/L (10-42); BUN - BLOOD UREA NITROGEN 20 mg/dL (6-20); CALCIUM 9.4 mg/dL (8.5-10.3); CARBON DIOXIDE - CO2 26 mmol/L (21-32); CHLORIDE 94 mmol/L (101-111); CREATININE 0.8 mg/dL (0.4-1.0); GFR - MDRD 68 (>89); GLUCOSE 122 mg/dL (70-100); LIPASE 28 U/L (22-51); POTASSIUM 3.6 mmol/L (3.5-5.0); SODIUM 129 mmol/L (135-145); TOTAL PROTEIN 7.1 g/dL (6.7-8.2)
[2022-03-09 12:55] LABS: THYROID STIMULATING HORMONE 1.63 uIU/mL (0.34-5.60)
[2022-03-09 12:57] LABS: FREE T4 (FREE THYROXINE) 1.64 ng/dL (0.58-1.64)
--- NOTE | 2022-03-09 14:03 | XRAY Report ---
PROCEDURE: Chest 1 View X-Ray INDICATIONS: flu like TECHNIQUE: One view of the chest was acquired. COMPARISON: None. FINDINGS: Surgical changes and devices: None. Lungs and pleura: No pleural effusions or pneumothorax. Lungs are clear. Mediastinum: Mediastinal contours appear normal. Heart size is normal. Bones and chest wall: No suspicious bony lesions. Overlying soft tissues appear unremarkable. IMPRESSION: No acute cardiopulmonary findings Reviewed by: Dominic Thornton MD on 03/09/2022 1:02 PM [facility] Approved by: Dominic Thornton MD on 03/09/2022 1:02 PM [facility] Station ID: [id number]
[2022-03-09 14:38] VITALS: BP 161/64
== END 2022-03-09 14:37 | disposition home or self-care (01) ==
LOC: EDUNIT# → ED 11:34
DX: R53.1 Weakness (principal); E87.1 Hypo-osmolality and hyponatremia; Z79.01 Long term (current) use of anticoagulants
CPT/HCPCS: 36415; 80053; 81001; 81003; 83690; 84439; 84443; 85025; 87086; 87275; 87276; 93005; 96360; 96361; 99285